=== PATIENT | male | born 1990 | race Hispanic/Latino ===

== ENCOUNTER 2019-07-05 00:56 | Observation (INO) ==
[2019-07-05] MEDS ORDERED: NS 1,000 ML IV ONE (01:00)
--- NOTE | 2019-07-05 01:05 | PROVIDER DOCUMENTATION ---
[id number] Abuse/Overdose - General Chief Complaint: Overdose Stated Complaint: OVERDOSE Time Seen by Provider: 07/05/19 00:58 Progress - PLAN OF CARE/RESULTS Progress/Plan/Lab Results: Orders Category Date Time Status Cardiac Monitoring DIRECTED Care 07/05/19 01:00 Ordered ABG [RESP] Stat Lab 07/05/19 01:00 Ordered ACETAMINOPHEN [TDM] Stat Lab 07/05/19 01:01 Uncollected ALCOHOL BLOOD Stat Lab 07/05/19 01:02 Uncollected SALICYLATES [TDM] Stat Lab 07/05/19 01:02 Uncollected URINE DRUG SCREEN PL Stat Lab 07/05/19 01:00 Uncollected Ns 1000 ml IV Bolus X1 Med 07/05/19 01:00 Ordered 0.9% Sodium Chloride Inj [Ns] 1,000 ml IV 999 mls/hr Departure - Departure Referrals and Follow-Ups: None,PCP [Primary Care Provider] -
[2019-07-05 01:19] LABS: BASO# 0.02 X1000 (0.0-0.2); BASO% 0.4 % (0.0-0.8); EOS# 0.12 X1000 (0.0-0.7); EOS% 2.3 % (0.0-10.0); HEMATOCRIT 41.9 % (42.0-52.0); HEMOGLOBIN 14.6 g/dL (14.0-18.0); IMM GRAN# 0.02 X1000 (0.0-0.04); IMM GRAN% 0.4 % (0.0-0.5); LYMPH# 2.11 X1000 (1.2-3.4); LYMPH% 40.7 % (20.5-51.1); MCH 28.8 PG (27-31); MCHC 34.8 g/dL (33-37); MCV 82.6 FL (81-99); MONO# 0.59 X1000 (0.11-0.59); MONO% 11.4 % (1.7-9.3); MPV 8.5 FL (7.4-10.4); NEUT# 2.33 X1000 (1.4-6.5); NEUT% 44.8 % (42.2-75.2); PLT 377 X1000 (130-400); RBC 5.07 XMIL (4.7-6.1); RDW 13.6 % (11.5-14.5); WBC 5.19 X1000 (4.8-10.8)
[2019-07-05 01:20] LABS: BE 0.9 mmoll (-3.0-3.0); BLOOD TYPE ARTERIAL; HCO3-(ACT) 25.5 mmoll (20.0-26.0); METHB 1.1 % (0.0-1.5); O2(CT) 19.4 mL/dL (15.0-23.0); O2HB 91.8 % (95.0-99.0); PCO2(98.6) 39 mmHg (35-45); PO2(98.6) 96 mmHg (60-100); SAMPLE BLOOD; SAO2 98.6 % (95.0-100.0); pH(98.6) 7.42 (7.35-7.45)
[2019-07-05 01:23] LABS: MODALITY ROOM AIR
[2019-07-05 01:35] LABS: UR AMPHETAMINES QUAL PRESUMPTIVE POSITIVE (NONE DETECT); UR BARBITUATES QUAL NONE DETECTED (NONE DETECT); UR BENZODIAZEPIN QUAL NONE DETECTED (NONE DETECT)
[2019-07-05 01:36] LABS: UR CANNABINOIDS QUAL NONE DETECTED (NONE DETECT); UR COCAINE QUAL PRESUMPTIVE POSITIVE (NONE DETECT); UR METHADONE QUAL NONE DETECTED (NONE DETECT); UR METHAMPHETAMINE QUAL PRESUMPTIVE POSITIVE (NONE DETECT); UR OPIATES QUAL NONE DETECTED (NONE DETECT); UR OXYCODONE QUAL NONE DETECTED (NONE DETECT); UR PCP QUAL NONE DETECTED (NONE DETECT); UR PROPOXYPHENE QUAL NONE DETECTED (NONE DETECT); UR TCA QUAL PRESUMPTIVE POSITIVE (NONE DETECT)
[2019-07-05] MEDS: NS 1,000 ML IV ONE ×2 (01:46→07:45)
[2019-07-05 01:49] LABS: ACETAMINOPHEN < 1.2 ug/mL (10-30); AGAP 14; ALKALINE PHOSPHATASE 63 U/L (32-122); BUN 12 mg/dL (8-22); CALCIUM 8.7 mg/dL (8.8-10.2); CHLORIDE 102 mmol/L (98-107); COSMO 280; ESTIMATED GFR > 60; GLUCOSE 120 mg/dL (70-104); GOT 19 U/L (10-34); GPT 18 U/L (10-44); POTASSIUM 3.9 mmol/L (3.5-5.1); SALICYLATES < 3.00 mg/dL (3-10); SODIUM 140 mmol/L (136-145); TCO2 24 mmol/L (25-35); TOTAL PROTEIN 6.1 g/dL (6.3-8.3)
--- NOTE | 2019-07-05 02:15 | PROVIDER DOCUMENTATION ---
This chart was entered by Yeimy Gan Scribe, acting as scribe for Raffaele Diaz MD. [id number] Abuse/Overdose - General Chief Complaint: Overdose Stated Complaint: OVERDOSE Time Seen by Provider: 07/05/19 00:58 Source: patient Allergies/Adverse Reactions: Allergies Allergy/AdvReac Type Severity Reaction Status Date / Time No Known Allergies Allergy Verified 07/05/19 01:22 Home Medications: Home Medication List Medication Instructions Recorded Confirmed Last Taken Type NK [No Home Medications] 07/05/19 07/05/19 Unknown History - History of Present Illness-Drug/Alcohol Nature of Presenting Problem: Pt is 29/M presenting to ED via EMS. Pt was found after overdosing on seroquil. Pt was found by . Pt arrives at ED very sleepy w/ a heavy tongue. He does attempt to answer questions, but he has a hard time staying awake. This episode of drinking or use began:: just prior to arrival Severity: reports: severe Situational problems related to:: reports: other (unknown) Psychiatric Complaints: reports: suicidal ideation Associated Symptoms: reports: other (lethargic) Any injuries associated with this episode of intoxication?: No Similar Symptoms Previously?: No Recently seen or treated by another doctor?: No - Overdose Intentional drug overdose?: Yes List substance(s) ingested.: seroquil How did the ingestion/other suicidal act come to attention?: pt found unresponsive, w/ empty RX bottle Suicide Risk Assessment: male sex, depressed Clinician's estimation of suicide risk?: high risk Review of Systems - Adult - REVIEW OF SYSTEMS - ADULT ROS:: limited per condition Constitutional: reports: see HPI Eyes: reports: no symptoms reported Ears, Nose, Mouth & Throat: reports: no symptoms reported Cardiovascular: reports: no symptoms reported Respiratory: reports: no symptoms reported Gastrointestinal: reports: no symptoms reported Genitourinary: reports: no symptoms reported Musculoskeletal: reports: no symptoms reported Integumentary: reports: no symptoms reported Neurological: reports: see HPI Psychiatric: reports: depression, suicidal thoughts Endocrine: reports: no symptoms reported Hematologic/Lymphatic: reports: no symptoms reported All Other Systems: Reviewed and Negative Past History - Adult - PAST MEDICAL HISTORY-ADULT Review of Records: reports: Old Records Reviewed, Nursing Assessment Review, Medications Reviewed, Social history reviewed & non-contributory. Major Childhood Illnesses: reports: denies history Cardiovascular: reports: denies history Physical Exam-General - CONSTITUTIONAL General Appearance: lethargic, slow to respond - EYES Eyes: PERRL/EOMI, pink conjunctivae, other (pupils are equal) - HEAD, EARS, NOSE, MOUTH & THROAT HENMT: moist mucous membranes - NECK Neck: non-tender, full range of motion, supple, normal inspection - RESPIRATORY Respiratory: lungs clear - CARDIOVASCULAR Cardiovascular: regular rate, rhythm - GASTROINTESTINAL (ABDOMEN) Abdominal Exam: normal bowel sounds, non tender, soft - LYMPHATIC Lymphatic: no adenopathy - MUSCULOSKELETAL Extremity: normal range of motion, non-tender, normal gait, normal inspection - SKIN Integumentary: normal color, warm/dry - NEUROLOGIC Neurologic: grossly normal - PSYCHIATRIC Psych/Mental Status: normal mood/affect, normal thought content, normal thought process, oriented x 3, other (pt does attempt to answer questions, he has a hard time staying awake and has a heavy tongue. knows birthday, how many pills he took and what time he took them.) Progress - PLAN OF CARE/RESULTS Progress/Plan/Lab Results: Vital Signs - 8 hr 07/05/19 01:07 07/05/19 01:23 Temperature 96.5 F L Pulse Rate 72 82 Respiratory Rate 18 12 Blood Pressure 100/70 128/75 O2 Sat by Pulse Oximetry 100 100 Laboratory Results - last 24 hr 07/05/19 07/05/19 07/05/19 00:59 00:59 00:59 WBC 5.19 RBC 5.07 Hgb 14.6 Hct 41.9 L MCV 82.6 MCH 28.8 MCHC 34.8 RDW Std Deviation 13.6 Plt Count 377 MPV 8.5 Immature Gran % (Auto) 0.4 Neut % (Auto) 44.8 Lymph % (Auto) 40.7 [place] % (Auto) 11.4 H Eos % (Auto) 2.3 Baso % (Auto) 0.4 Immature Gran # (Auto) 0.02 Neut # (Auto) 2.33 Lymph # (Auto) 2.11 [place] # (Auto) 0.59 Eos # (Auto) 0.12 Baso # (Auto) 0.02 Specimen Type Sample Site pH pCO2 pO2 HCO3 Base Excess Oxyhemoglobin ABG O2 Sat (Calculated) ABG O2 Saturation ABG Carboxyhemoglobin ABG Methemoglobin A-a O2 Difference Total Hemoglobin Lactate Blood Gas Modality FiO2 % Sodium 140 Potassium 3.9 Chloride 102 Carbon Dioxide 24 L Anion Gap 14 BUN 12 Creatinine 1.0 Estimated GFR/1.73 m2 > 60 BUN/Creatinine Ratio 12 Glucose 120 H Calculated Osmolality 280 Calcium 8.7 L Total Bilirubin 0.50 AST 19 ALT 18 Alkaline Phosphatase 63 Total Protein 6.1 L Albumin 4.0 Globulin 2.0 Albumin/Globulin Ratio 2.0 Salicylates < 3.00 L Urine Opiates Screen Ur Oxycodone Screen Urine Methadone Screen U Propoxyphene Qual Acetaminophen < 1.2 L Ur Barbituates Screen Ur Tricyclics Screen Ur Phencyclidine Scrn Ur Amphetamines Screen U Methamphetamines Scrn U Benzodiazepines Scrn Urine Cocaine Screen U Cannabinoids Screen Plasma/Serum Ethyl Alc 98 H 07/05/19 07/05/19 01:04 01:12 WBC RBC Hgb Hct MCV MCH MCHC RDW Std Deviation Plt Count MPV Immature Gran % (Auto) Neut % (Auto) Lymph % (Auto) [place] % (Auto) Eos % (Auto) Baso % (Auto) Immature Gran # (Auto) Neut # (Auto) Lymph # (Auto) [place] # (Auto) Eos # (Auto) Baso # (Auto) Specimen Type ARTERIAL Sample Site R RADIAL pH 7.42 pCO2 39 pO2 96 HCO3 25.5 Base Excess 0.9 Oxyhemoglobin 91.8 L ABG O2 Sat (Calculated) 19.4 ABG O2 Saturation 98.6 ABG Carboxyhemoglobin 5.80 H* ABG Methemoglobin 1.1 A-a O2 Difference 5.0 Total Hemoglobin 15.0 Lactate 3.30 H Blood Gas Modality ROOM AIR FiO2 % 21.0 Sodium Potassium Chloride Carbon Dioxide Anion Gap BUN Creatinine Estimated GFR/1.73 m2 BUN/Creatinine Ratio Glucose Calculated Osmolality Calcium Total Bilirubin AST ALT Alkaline Phosphatase Total Protein Albumin Globulin Albumin/Globulin Ratio Salicylates Urine Opiates Screen NONE DETECTED Ur Oxycodone Screen NONE DETECTED Urine Methadone Screen NONE DETECTED U Propoxyphene Qual NONE DETECTED Acetaminophen Ur Barbituates Screen NONE DETECTED Ur Tricyclics Screen PRESUMPTIVE POSITIVE A Ur Phencyclidine Scrn NONE DETECTED Ur Amphetamines Screen PRESUMPTIVE POSITIVE A U Methamphetamines Scrn PRESUMPTIVE POSITIVE A U Benzodiazepines Scrn NONE DETECTED Urine Cocaine Screen PRESUMPTIVE POSITIVE A U Cannabinoids Screen NONE DETECTED Plasma/Serum Ethyl Alc Orders Category Date Time Status Admit - [facility] Routine AdmDCTranf 07/05/19 01:46 Active Activity - Strict Bedrest ORDERED Care 07/05/19 01:46 Active Cardiac Monitoring DIRECTED Care 07/05/19 01:00 Active Little Cath Insertion ORDERED Care 07/05/19 01:27 Completed Misc. NRSG Communication Order DIRECTED Care 07/05/19 01:50 Active Neurological Check Q2H Care 07/05/19 01:46 Active Resuscitation Status Routine Care 07/05/19 01:46 Ordered Vital Signs Order RTQ1H Care 07/05/19 01:46 Active Z-Document. for Tele Applied ORDERED Care 07/05/19 01:48 Active NPO Diet 07/05/19 01:48 Active ABG [RESP] Routine Lab 07/05/19 01:12 Results ACETAMINOPHEN [TDM] Stat Lab 07/05/19 00:59 Completed ALCOHOL BLOOD Stat Lab 07/05/19 00:59 Completed CBC WITH ELECTRONIC DIFF [HEME] Stat Lab 07/05/19 00:59 Completed CMP [COMPREHENSIVE METABOLIC PANEL] [CHEM] Stat Lab 07/05/19 00:59 Completed SALICYLATES [TDM] Stat Lab 07/05/19 00:59 [address] DRUG SCREEN [address] Stat Lab 07/05/19 01:04 Completed 0.9% Sodium Chloride Inj [Ns] 1,000 ml Med 07/05/19 01:46 Active IV 125 mls/hr 0.9% Sodium Chloride Inj [Ns] 1,000 ml Med 07/05/19 01:00 Discontinued IV 999 mls/hr Telemetry [OM.EQ] Routine Oth 07/05/19 01:46 Active Transfer/Admit Order [TRANSFER] Routine Transfer 07/05/19 01:49 Ordered Result Diagrams: 07/05/19 00:59 07/05/19 00:59 - EKG 1 Time of EKG reading by physician:: 01:00 EKG Read and Signed by:: Raffaele Diaz EKG Interpretation (*Must complete 3 of following elements*): Normal (NSR, possible left atrial enlargement, Incomplete right bundle branch block, Borderline ECG. NO STEMI) Departure - Departure Date of Disposition Decision: 07/05/19 Time of Disposition Decision: 02:15 DIAGNOSIS: Suicide attempt, Cocaine abuse, Amphetamine abuse TCA (tricyclic antidepressant) overdose of undetermined intent Qualifiers: Encounter type: initial encounter Qualified Code(s): T43.014A - Poisoning by tricyclic antidepressants, undetermined, initial encounter Disposition: ADMITTED INPATIENT 09 Certified Medical Emergency: Emergent Condition: Stable Referrals and Follow-Ups: None,PCP [Primary Care Provider] - - Critical Care Note This patient required my direct & personal management of CC.: Yes Total Time (mins): 55 Critical Care Statement: This patient required my direct personal management to treat or rule out processes, the absence of which, could potentiallly result in sudden, clinically significant life or limb threatening deterioration. Attestation - Physician/ CAROL Attestation Patient care was provided by Advanced Practice Provider:: No The physician spent face to face time with patient:: Yes Advanced Practice Provider documentation review:: Supervising physician onsite and consulted in the evaluation and care of this patient. The physician did have a face to face encounter with the patient. This chart was documented by the indicated scribe, (Yeimy Gan, [place]) and accurately reflects the services I performed and decisions made by me, Raffaele Diaz MD, as attested by the provider's signature.
[2019-07-05] MEDS ORDERED: NS 1,000 ML ONE (07:31)
[2019-07-05 10:13] LABS: BASO# 0.02 X1000 (0.0-0.2); BASO% 0.4 % (0.0-0.8); EOS# 0.14 X1000 (0.0-0.7); EOS% 2.6 % (0.0-10.0); HEMOGLOBIN 13.7 g/dL (14.0-18.0); IMM GRAN# 0.01 X1000 (0.0-0.04); IMM GRAN% 0.2 % (0.0-0.5); LYMPH# 2.16 X1000 (1.2-3.4); LYMPH% 40.4 % (20.5-51.1); MCH 28.6 PG (27-31); MCHC 34.3 g/dL (33-37); MCV 83.5 FL (81-99); MONO# 0.64 X1000 (0.11-0.59); MPV 8.4 FL (7.4-10.4); NEUT# 2.38 X1000 (1.4-6.5); NEUT% 44.4 % (42.2-75.2); PLT 346 X1000 (130-400); RBC 4.79 XMIL (4.7-6.1); RDW 13.7 % (11.5-14.5); WBC 5.35 X1000 (4.8-10.8)
[2019-07-05 10:47] LABS: AGAP 10; ALBUMIN 3.6 g/dL (3.5-5.0); ALKALINE PHOSPHATASE 58 U/L (32-122); BUN 10 mg/dL (8-22); CALCIUM 8.8 mg/dL (8.8-10.2); CHLORIDE 104 mmol/L (98-107); COSMO 275; CREATININE 0.8 mg/dL (0.7-1.2); ESTIMATED GFR > 60; GLUCOSE 78 mg/dL (70-104); GOT 17 U/L (10-34); GPT 17 U/L (10-44); MAGNESIUM 1.7 mg/dL (1.5-2.7); POTASSIUM 3.8 mmol/L (3.5-5.1); SODIUM 139 mmol/L (136-145); TCO2 25 mmol/L (25-35); TOTAL PROTEIN 5.6 g/dL (6.3-8.3)
--- NOTE | 2019-07-05 11:02 | EKG Report ---
Test Performed on : 07/05/2019 01:00:16 AM Test Reason : pain Blood Pressure : / mmHG Vent. Rate : 069 BPM Atrial Rate : 069 BPM P-R Int : 138 ms QRS Dur : 100 ms QT Int : 406 ms P-R-T Axes : 061 061 054 degrees QTc Int : 435 ms Normal sinus rhythm. Possible Left atrial enlargement Incomplete right bundle branch block Borderline ECG No previous ECGs available Unconfirmed Result
[2019-07-05 11:12] LABS: ALLEN TEST YES
--- NOTE | 2019-07-05 13:35 | HISTORY AND PHYSICAL ---
PRIMARY CARE PROVIDER: None. CHIEF COMPLAINT: Overdose. HISTORY OF PRESENT ILLNESS: Julian Ford is a 29-year-old, male with a medical history of cocaine abuse along with alcoholism specifically with whiskey. He has even had rehabilitation in the past in [place] about 2 years ago. He suffers from depression and anxiety. He states that he was drunk and in the past couple days he has snorted methamphetamine along with cocaine and is not prescribe Seroquel but actually buys it off the streets from someone else. Claims he has taken it before usually for his depression but is unclear about how many pills he took. He says it was a full bottle but the amount is an unknown thing. His girlfriend found him unresponsive with an empty bottle and when he got to the hospital he was extremely lethargic but would respond and then transferred to the ICU. He had a urine drug screen that was very positive with tricyclics, amphetamines, methamphetamines, and cocaine and also with alcohol level of 98. He just claims that essentially life has him depressed and so we are going to keep him in the ICU to monitor and then once he is medically stable, will have Bo Gutierrez evaluate for admission. PAST MEDICAL HISTORY: Depression and anxiety. PAST SURGICAL HISTORY: Appendectomy. SOCIAL HISTORY: Half pack per day smoker for 2 years. He drinks whiskey, buys 750 mL bottle and has 1 bottle per day on the weekends and he buys 1 bottle to last throughout the week. He uses cocaine less than once a month but has recently in the last couple days used. Crystal meth he used within the last couple days, snorted it like he does coke but he states his use of crystal meth has only been maybe 5 times in his lifetime. He currently is a automotive worker. Apparently works at [employer] in [facility]. Has an 11-year-old daughter. Has been in the past but since and his girlfriend is currently at the bedside who does not speak Irish. It is noted that he has been in a rehab in [place] 2 years ago for cocaine abuse and whiskey abuse. FAMILY HISTORY: On his mother's side, one of his grandfathers had cancer but he was unclear of what kind and then he was unsure of his father's medical history. ALLERGIES: No known drug allergies. MEDICATIONS: He has no prescribed medications. He tends to buy medications off the street. REVIEW OF SYSTEMS: Other than being drowsy and depressed, he is complaining of being thirsty. Despite that, all 14 point review of systems are complete and all were negative except for those mentioned above HPI. PHYSICAL EXAMINATION: VITAL SIGNS: Temperature 98.2 degrees, heart rate 74, respiratory rate 13, blood pressure 105/62, O2 saturation 98% on room air. He is 6 feet tall, 159 pounds with a BMI of 21.6. GENERAL: Mr. Julian Ford is a 29-year-old male. He is in no acute distress but drowsy. He is able answer questions appropriately. HEENT: Atraumatic, normocephalic. Pupils equal, round, reactive to light. Extraocular movements intact. Mucous membranes are dry. NECK: Trachea midline. CARDIOVASCULAR: S1, S2. Regular rate and rhythm. No rubs, gallops, murmurs. No lower extremity edema. +2 dorsalis and radial pulses. Negative JVD or carotid bruits. PULMONARY: Clear to auscultation. Bilateral breath sounds. No accessory muscle use or work of breathing noted. GASTROINTESTINAL: Soft, nontender, nondistended. Positive bowel sounds x4. EXTREMITIES: Moves all extremities equally. A full range of motion. NEUROLOGIC: A and O x3. Follows commands. Sensory is intact. SKIN: Warm, dry, intact. LABORATORY DATA: White blood cells 5000, hemoglobin 13, hematocrit 40, platelet count 346,000. ABGs on room air revealed pH 7.42, pCO2 39, pO2 96, bicarb 25, base excess 0.9, saturation 92%, carboxyhemoglobin 5.8. Lactate was 3.3. Sodium 139, potassium 3.8, BUN 10, creatinine 0.8, glucose 78, calcium 8.8, magnesium 1.7, bilirubin 0.60, AST 17, ALT 17, albumin 3.6, serum lactate 0.5. Urine drug screen positive for tricyclics, amphetamines, methamphetamine, and cocaine. He was originally with alcohol level 98, is now down to a 0. Salicylate is less than 3 and acetaminophen is less than 1.2. IMAGING: EKG revealed normal sinus rhythm, rate 69, QTc 435. No other imaging. ASSESSMENT AND PLAN: 1. Intentional overdose of tricyclic antidepressants, Seroquel. This is not a prescription medication for him. He actually buys it off the street. He said the bottle was full so it could have possibly been close to 30 pills. He is on telemetry. We will monitor him very closely and once he is medically stable, we will recommend a consult for Bo Gutierrez. 2. History of anxiety and depression. Self medicates with alcohol abuse and drug abuse. He has been in rehab in the past for cocaine and whiskey. Hopefully can actually get him on a prescription that will help him regulate his depression. 3. Poly drug abuse. Cessation discussed. 4. Tobacco abuse. Cessation discussed. 5. Deep venous thrombosis prophylaxis with SCDs. Dictated by BRANDO Tejada for Andre Dudley MD Addendum: Patient seen and examined by myself. Agree with BRANDO note. It reflects my assessment and plan. Patient is being admitted to hospital for suicidal attempt secondary to drug overdose. Will start aggressive IV fluid resuscitation and monitor him closely in ICU. cc: BRANDO Tejada MD [facility]
--- NOTE | 2019-07-05 19:02 | EKG Report ---
Test Performed on : 07/05/2019 6:32:58 PM Test Reason : SEROQUEL OVERDOSE Blood Pressure : / mmHG Vent. Rate : 079 BPM Atrial Rate : 079 BPM P-R Int : 144 ms QRS Dur : 096 ms QT Int : 390 ms P-R-T Axes : 036 055 045 degrees QTc Int : 447 ms Normal sinus rhythm. Cannot rule out Inferior infarct , age undetermined Abnormal ECG When compared with ECG of 05-JUL-2019 11:43, (Unconfirmed) Minimal criteria for Inferior infarct are now present Confirmed by Shankar Carlin MD ([id number]) on 07/09/2019 3:14:18 PM
--- NOTE | 2019-07-05 19:08 | EKG Report ---
Test Performed on : 07/05/2019 11:43:43 AM Test Reason : SEROQUEL OVERDOSE Blood Pressure : / mmHG Vent. Rate : 059 BPM Atrial Rate : 059 BPM P-R Int : 144 ms QRS Dur : 094 ms QT Int : 442 ms P-R-T Axes : 030 060 036 degrees QTc Int : 437 ms Sinus bradycardia. Otherwise normal ECG When compared with ECG of 05-JUL-2019 01:00, (Unconfirmed) No significant change was found Unconfirmed Result
[2019-07-06 06:27] LABS: BASO# 0.03 X1000 (0.0-0.2); BASO% 0.5 % (0.0-0.8); EOS# 0.22 X1000 (0.0-0.7); EOS% 3.4 % (0.0-10.0); HEMATOCRIT 44.7 % (42.0-52.0); IMM GRAN% 0.3 % (0.0-0.5); LYMPH# 2.22 X1000 (1.2-3.4); LYMPH% 34.7 % (20.5-51.1); MCH 28.2 PG (27-31); MCHC 33.6 g/dL (33-37); MCV 84.2 FL (81-99); NEUT% 50.1 % (42.2-75.2); PLT 396 X1000 (130-400); RBC 5.31 XMIL (4.7-6.1); RDW 13.7 % (11.5-14.5); WBC 6.39 X1000 (4.8-10.8)
[2019-07-06 06:28] LABS: IMM GRAN# 0.02 X1000 (0.0-0.04)
[2019-07-06 06:48] LABS: AGAP 8; BUN 10 mg/dL (8-22); CALCIUM 8.4 mg/dL (8.8-10.2); CHLORIDE 105 mmol/L (98-107); COSMO 278; CREATININE 0.9 mg/dL (0.7-1.2); ESTIMATED GFR > 60; GLUCOSE 84 mg/dL (70-104); POTASSIUM 4.1 mmol/L (3.5-5.1); SODIUM 140 mmol/L (136-145); TCO2 27 mmol/L (25-35)
[2019-07-06 08:28] VITALS: BP 109/68
--- NOTE | 2019-07-06 08:40 | EKG Report ---
Test Performed on : 07/06/2019 01:21:12 AM Test Reason : seroquel overdose Blood Pressure : / mmHG Vent. Rate : 066 BPM Atrial Rate : 066 BPM P-R Int : 130 ms QRS Dur : 092 ms QT Int : 406 ms P-R-T Axes : 051 055 057 degrees QTc Int : 425 ms Poor data quality, interpretation may be adversely affected Normal sinus rhythm. Nonspecific ST abnormality Abnormal ECG When compared with ECG of 05-JUL-2019 18:32, (Unconfirmed) Minimal criteria for Inferior infarct are no longer present Confirmed by Shankar Carlin MD ([id number]) on 07/09/2019 3:14:12 PM
--- NOTE | 2019-07-06 08:40 | EKG Report ---
Test Performed on : 07/06/2019 06:19:55 AM Test Reason : seroquel overdose Blood Pressure : / mmHG Vent. Rate : 060 BPM Atrial Rate : 060 BPM P-R Int : 136 ms QRS Dur : 092 ms QT Int : 418 ms P-R-T Axes : 049 078 038 degrees QTc Int : 418 ms Normal sinus rhythm. with sinus arrhythmia. Normal ECG When compared with ECG of 06-JUL-2019 01:21, (Unconfirmed) No significant change was found Confirmed by Shankar Carlin MD ([id number]) on 07/09/2019 3:14:04 PM
--- NOTE | 2019-07-06 19:25 | DISCHARGE SUMMARY ---
ADMISSION DATE: 07/05/2019 DISCHARGE DATE: 07/06/2019 DISCHARGE DIAGNOSES: 1. Suicidal attempt. 2. Intentional drug overdose. 3. History of anxiety and depression. 4. Polysubstance abuse. 5. Tobacco abuse. PROCEDURES: None. HOSPITAL COURSE: In brief, this is a 29-year-old male, who was admitted to the hospital because of altered mental status secondary to drug overdose. Actually, he overdosed on Seroquel, and also his UDS was positive for methamphetamines, cocaine, and alcohol level of 98. Admitted to the intensive care unit. Placed on IV fluids. Next day, he was definitely more alert and awake. Able to eat. We have consulted [facility] who said that they are not going to be able to admit. They recommended some other places to be seen as an outpatient, and they will talk to him to make a safety plan. So they aware and okay with discharging this patient. Medically, he is stable. All his numbers are okay, so he is going to be discharged in stable condition. DISCHARGE PHYSICAL EXAMINATION: Vital Signs: Temperature 98.2 degrees, heart rate 73, respiratory rate 110/72, O2 saturations 98% on room air. General: This is a 29-year-old male, lying in bed, in no acute distress. Cardiovascular: S1, S2 heard. No murmurs, gallops, or rubs. Regular rate and rhythm. Respiratory: Clear bilaterally to auscultation. No work of breathing or using accessory muscles. Abdomen: Soft, nontender to palpation. Bowel sounds present. No organomegaly. Extremities: No clubbing, cyanosis, or edema. Peripheral pulses present in both legs. Neurological: The patient alert and oriented x3. Moves all 4 extremities. DISCHARGE DISPOSITION: Home to self-care. FOLLOWUP: He is being provided a list of psychiatrists he needs to see. TIME SPENT: Time discharging this patient 25 minutes. cc: Andre Dudley MD
== END 2019-07-06 10:50 | disposition home or self-care (01) ==
LOC: P.EDIPHOLD 00:56 → P.ED 00:56 → SUATTDRO 04:04 → P.ICU 06:41
PROVIDERS: ATTEND Internal Medicine